=== PATIENT | female | born 1945 | race Two or more races ===

== ENCOUNTER 2018-05-22 05:58 | Inpatient (IN) | payer OTHER ==
[2018-05-18 10:56] LABS: Basophils # (auto) 0 uL; Basophils % (auto) 0.6 % (0.0-2.0); Eosinophils # (auto) 0.1 uL; Eosinophils % (auto) 3.6 % (0.0-7.0); Hemoglobin 14.1 g/dL (12.2-16.2); Lymphocytes # (auto) 0.7 uL; Lymphocytes % (auto) 21.1 % (10.0-50.0); Mean Corpuscular Hemoglobin 33.1 pg (28.0-32.0); Mean Corpuscular Hgb Conc. 33.7 g/dL (32.0-36.0); Mean Corpuscular Volume 98.2 fL (80.0-100.0); Monocytes # (auto) 0.3 uL; Monocytes % (auto) 8.4 % (0.0-12.0); Neutrophils # (auto) 2.2 uL; Neutrophils % (auto) 66.3 % (37.0-80.0); Nucleated Red Blood Cells % 0.1 %; Platelet Count (auto) 286 10^3/uL (140-450); Red Blood Cells 4.27 10^6/uL (4.0-5.20); Red Cell Distribution Width 14.5 % (11.8-14.3); White Blood Cell 3.3 10^3/uL (4.4-10.8)
[2018-05-18 11:01] LABS: Urine Amorphous Crystal FEW /hpf (None Seen); Urine Bacteria FEW /hpf (None Seen); Urine Blood Negative /uL (Negative); Urine Specific Gravity 1.012 (1.001-1.035); Urine WBC 1 /hpf (0 - 5)
[2018-05-18 11:10] LABS: INR 0.93 (0.9-1.15); Partial Thromboplastin Time 27.1 sec (23.78-33.04)
[2018-05-18 12:52] LABS: Albumin 3.9 g/dL (3.4-5.0); BUN/Creatinine Ratio 20.5; Calcium 9.1 mg/dL (8.5-10.1); Potassium 4.5 mmol/L (3.5-5.1)
[2018-05-18 12:55] LABS: Bilirubin, Total 0.4 mg/dL (0.2-1.0); Total Protein 8.2 g/dL (6.4-8.2)
[~2018-05-22] VITALS: Ht 154.9 cm; Wt 35.7 kg
[~2018-05-22 05:58] MED LIST: ALEN1TAB32 PO; CEPH250C2 PO; CHOL20007 PO; KRIL1CAP14 PO; LISI-275 PO; LOVA20TA4 PO; METF-370 PO; PIOG1TAB36 OR
[2018-05-22] MEDS ORDERED: ceFAZolin 1GM/50ML 100 ML IV ONE (06:38)
[2018-05-22] MEDS ORDERED: SUCCINYLCHOLINE CHLORIDE 20 MG/ML 10ML VIAL IV ONE (07:01)
[2018-05-22] MEDS ORDERED: LIDOCAINE 1% HCL (LOCAL ANESTH.) INJ 20ML MDV ONE (07:01)
[2018-05-22] MEDS ORDERED: MORPHINE SULF(PF) 0.5MG/ML 10ML VIAL ONE (07:23)
[2018-05-22] MEDS ORDERED: TETRACAINE 1% INJ 2 ML VIAL IJ ONE (07:23)
[2018-05-22] MEDS ORDERED: SODIUM CHLORIDE LOCK 10 ML ONE (07:24)
[2018-05-22] MEDS ORDERED: PROPOFOL 10 MG/ML 20 ML IV ONE (07:24)
[2018-05-22] MEDS ORDERED: ONDANSETRON HCL 4 MG/2 ML VIAL ONE (07:24)
[2018-05-22] MEDS ORDERED: MIDAZOLAM HCL 1MG/1ML-2 ML VIAL ONE (07:24)
[2018-05-22] MEDS ORDERED: fentaNYL CITRATE 100 MCG/2 ML VL ONE (07:24)
[2018-05-22] MEDS ORDERED: METOCLOPRAMIDE HCL 5MG/ml INJ 2ml VIAL IV ONE (09:00)
[2018-05-22] MEDS ORDERED: KETOROLAC TROMETH 30 MG/ML 1ML VIAL IV ONE (09:00)
[2018-05-22] MEDS ORDERED: ACCU-CHEK COMFORT CURVE STRIP VI ONE (09:00)
[2018-05-22] MEDS ORDERED: fentaNYL CITRATE 100 MCG/2 ML VL IV ONE (09:00)
[2018-05-22] MEDS: LACTATED RINGER'S 1,000 ML IV SCH (11:19)
[2018-05-22] MEDS ORDERED: LIDOCAINE W/ EPINEPHRINE 2% INJ 20ML VIAL ONE (11:21)
[2018-05-22] MEDS ORDERED: BUPIVACAINE HCL 50 ML ONE (11:21)
[2018-05-22] MEDS ORDERED: ceFAZolin 1GM/50ML 50 ML IV SCH (11:30)
[2018-05-22] MEDS ORDERED: TEMAZEPAM 15 MG CAP PO PRN (11:30)
[2018-05-22] MEDS ORDERED: ENOXAPARIN SOD 40 MG/0.4 ML SYRINGE SC ONE (11:45)
[2018-05-22] MEDS ORDERED: DOCUSATE SOD 100 MG CAP PO ONE (11:45)
[2018-05-22] MEDS: ceFAZolin 1GM/50ML 50 ML IV SCH ×2 (13:19→19:32)
[2018-05-22] MEDS ORDERED: DEXTROSE (50%) 50ML SYRG IV PRN (13:45)
[2018-05-22 14:06] VITALS: BP 129/84
[2018-05-22 14:23] VITALS: BP 129/84
[2018-05-22] MEDS: SODIUM CHLOR 0.9% PF (SALINE LOCK) 10ML VIAL/SYR IV SCH ×2 (14:25→22:01)
[2018-05-22] MEDS: ACETAMINOPHEN 325 MG TAB PO PRN (14:31)
[2018-05-22 16:17] VITALS: BP 103/63
[2018-05-22] MEDS: HYDROmorphone HCL 2 MG/ML VL IV PRN ×2 (16:45→23:45)
[2018-05-22] MEDS: ACCU-CHEK COMFORT CURVE STRIP VI SCH ×2 (17:31→22:10)
[2018-05-22] MEDS: metFORMIN HYDROCHLORIDE 500 MG TAB PO SCH (17:52)
[2018-05-22] MEDS: InsuLIN REG 1unit/0.01ml Soln (100units/ml) SC SCH ×2 (17:53→22:27)
[2018-05-22 20:00] VITALS: BP 95/70
[2018-05-22 21:44] VITALS: BP 95/70
[2018-05-22] MEDS ORDERED: DOCUSATE SOD 100 MG CAP PO SCH (22:00)
[2018-05-22] MEDS: DOCUSATE SOD 100 MG CAP PO SCH (22:00)
[2018-05-22] MEDS: PRAVASTATIN SODIUM 20 MG TAB PO SCH (22:00)
[2018-05-22] MEDS: oxyCODONE ER 10 MG TAB PO SCH (22:01)
[2018-05-23] MEDS: ceFAZolin 1GM/50ML 50 ML IV SCH (01:15)
[2018-05-23 04:41] VITALS: BP 100/65
[2018-05-23] MEDS: HYDROmorphone HCL 2 MG/ML VL IV PRN ×5 (04:57→20:53)
[2018-05-23] MEDS: SODIUM CHLOR 0.9% PF (SALINE LOCK) 10ML VIAL/SYR IV SCH ×3 (05:35→22:01)
[2018-05-23] MEDS: ACCU-CHEK COMFORT CURVE STRIP VI SCH ×4 (05:43→22:03)
[2018-05-23] MEDS: InsuLIN REG 1unit/0.01ml Soln (100units/ml) SC SCH ×4 (06:24→22:20)
[2018-05-23] MEDS: metFORMIN HYDROCHLORIDE 500 MG TAB PO SCH ×2 (06:24→18:37)
[2018-05-23] MEDS: LACTATED RINGER'S 1,000 ML IV SCH (06:25)
[2018-05-23 06:27] LABS: Basophils # (auto) 0 uL; Basophils % (auto) 0.2 % (0.0-2.0); Eosinophils # (auto) 0 uL; Eosinophils % (auto) 0.3 % (0.0-7.0); Hematocrit 28.9 % (36.0-46.0); Hemoglobin 9.9 g/dL (12.2-16.2); Lymphocytes # (auto) 0.7 uL; Mean Corpuscular Hemoglobin 33.8 pg (28.0-32.0); Mean Corpuscular Hgb Conc. 34.4 g/dL (32.0-36.0); Mean Corpuscular Volume 98.1 fL (80.0-100.0); Monocytes # (auto) 1.3 uL; Neutrophils # (auto) 6.4 uL; Neutrophils % (auto) 76.5 % (37.0-80.0); Platelet Count (auto) 252 10^3/uL (140-450); Red Blood Cells 2.94 10^6/uL (4.0-5.20); Red Cell Distribution Width 14.3 % (11.8-14.3); White Blood Cell 8.4 10^3/uL (4.4-10.8)
[2018-05-23 06:56] LABS: BUN/Creatinine Ratio 25.4; Potassium 4.1 mmol/L (3.5-5.1)
[2018-05-23] MEDS: ONDANSETRON HCL 4 MG/2 ML VIAL IV PRN ×4 (07:45→20:53)
[2018-05-23 08:30] VITALS: BP 146/82
[2018-05-23 09:00] VITALS: BP 146/82
[2018-05-23] MEDS: CHOLECALCIFEROL (VITD3) 1,000 UNIT TAB PO SCH (09:59)
[2018-05-23] MEDS: LISINOPRIL 5 MG TAB PO SCH (10:00)
[2018-05-23] MEDS: oxyCODONE ER 10 MG TAB PO SCH ×2 (10:00→22:01)
[2018-05-23] MEDS: ENOXAPARIN SOD 40 MG/0.4 ML SYRINGE SC SCH (10:00)
[2018-05-23] MEDS: OMEGA PO SCH (10:00)
[2018-05-23] MEDS: DOCUSATE SOD 100 MG CAP PO SCH ×2 (10:00→22:01)
[2018-05-23] MEDS: PIOGLITAZONE HYDROCHLORIDE 30 MG TAB PO SCH (10:26)
[2018-05-23 13:00] VITALS: BP 137/79
[2018-05-23] MEDS: HYDROcodone-ACET 10/325MG TAB PO PRN ×2 (13:31→18:38)
[2018-05-23 16:44] VITALS: BP 135/69
[2018-05-23 22:00] VITALS: BP 178/62
[2018-05-23] MEDS: PRAVASTATIN SODIUM 20 MG TAB PO SCH (22:01)
[2018-05-24] MEDS: HYDROmorphone HCL 2 MG/ML VL IV PRN ×5 (00:06→17:50)
[2018-05-24] MEDS: LACTATED RINGER'S 1,000 ML IV SCH (03:19)
[2018-05-24 05:00] VITALS: BP 101/56
[2018-05-24] MEDS: SODIUM CHLOR 0.9% PF (SALINE LOCK) 10ML VIAL/SYR IV SCH ×3 (06:00→22:22)
[2018-05-24] MEDS: ACCU-CHEK COMFORT CURVE STRIP VI SCH ×4 (06:26→22:22)
[2018-05-24] MEDS: metFORMIN HYDROCHLORIDE 500 MG TAB PO SCH ×2 (06:26→17:50)
[2018-05-24] MEDS: InsuLIN REG 1unit/0.01ml Soln (100units/ml) SC SCH ×4 (06:36→22:22)
[2018-05-24 08:00] VITALS: BP 103/56
[2018-05-24 08:54] VITALS: BP 103/56
[2018-05-24] MEDS: CHOLECALCIFEROL (VITD3) 1,000 UNIT TAB PO SCH (09:18)
[2018-05-24] MEDS: OMEGA PO SCH (09:19)
[2018-05-24] MEDS: DOCUSATE SOD 100 MG CAP PO SCH ×2 (09:20→22:22)
[2018-05-24] MEDS: oxyCODONE ER 10 MG TAB PO SCH ×2 (09:20→22:21)
[2018-05-24] MEDS: LISINOPRIL 5 MG TAB PO SCH (09:21)
[2018-05-24] MEDS: ENOXAPARIN SOD 40 MG/0.4 ML SYRINGE SC SCH (09:21)
[2018-05-24] MEDS: PIOGLITAZONE HYDROCHLORIDE 30 MG TAB PO SCH (09:26)
[2018-05-24] MEDS: ONDANSETRON HCL 4 MG/2 ML VIAL IV PRN ×2 (11:47→17:50)
[2018-05-24 12:00] VITALS: BP 121/64
[2018-05-24 12:10] LABS: Basophils # (auto) 0 uL; Basophils % (auto) 0.2 % (0.0-2.0); Eosinophils # (auto) 0 uL; Hematocrit 25.4 % (36.0-46.0); Hemoglobin 8.6 g/dL (12.2-16.2); Lymphocytes # (auto) 0.4 uL; Lymphocytes % (auto) 3.2 % (10.0-50.0); Mean Corpuscular Hemoglobin 33.6 pg (28.0-32.0); Mean Corpuscular Hgb Conc. 33.7 g/dL (32.0-36.0); Mean Corpuscular Volume 99.7 fL (80.0-100.0); Monocytes # (auto) 1.1 uL; Monocytes % (auto) 9.4 % (0.0-12.0); Neutrophils # (auto) 10.1 uL; Neutrophils % (auto) 87.2 % (37.0-80.0); Platelet Count (auto) 208 10^3/uL (140-450); Red Blood Cells 2.54 10^6/uL (4.0-5.20); Red Cell Distribution Width 14.1 % (11.8-14.3); White Blood Cell 11.6 10^3/uL (4.4-10.8)
[2018-05-24 16:59] VITALS: BP 108/60
[2018-05-24 21:50] VITALS: BP 92/55
[2018-05-24] MEDS: PRAVASTATIN SODIUM 20 MG TAB PO SCH (22:22)
[2018-05-25] VITALS (12 sets, daily range): BP systolic 90–114; BP diastolic 52–69
[2018-05-25] MEDS ORDERED: SODIUM CHLORIDE 0.9% 1,000 ML IV ONE (02:15)
[2018-05-25] MEDS ORDERED: VANCOMYCIN PER PHARMACY 0 MG IV SCH (02:15)
[2018-05-25] MEDS: ACETAMINOPHEN 325 MG TAB PO PRN ×2 (02:49→21:09)
[2018-05-25] MEDS ORDERED: VANCOMYCIN 1GM/250ML 250 ML IV ONE (03:00)
[2018-05-25] MEDS ORDERED: SODIUM CHLORIDE 0.9% 1,000 ML IV SCH (03:15)
[2018-05-25 05:43] LABS: Basophils # (auto) 0 uL; Eosinophils # (auto) 0 uL; Hematocrit 19.6 % (36.0-46.0); Lymphocytes # (auto) 0.6 uL; Neutrophils # (auto) 9.8 uL; Nucleated Red Blood Cells % 0.1 %
[2018-05-25 05:44] LABS: Lymphocytes % (auto) 5.4 % (10.0-50.0); Mean Corpuscular Hemoglobin 34.3 pg (28.0-32.0); Mean Corpuscular Hgb Conc. 35.1 g/dL (32.0-36.0); Mean Corpuscular Volume 97.7 fL (80.0-100.0); Monocytes # (auto) 0.9 uL; Monocytes % (auto) 8.2 % (0.0-12.0); Neutrophils % (auto) 86.4 % (37.0-80.0); Platelet Count (auto) 224 10^3/uL (140-450); White Blood Cell 11.3 10^3/uL (4.4-10.8)
[2018-05-25 05:48] LABS: Hemoglobin 6.9 g/dL (12.2-16.2)
[2018-05-25] MEDS ORDERED: PIPERACILLIN-TAZOB 3.375GM 100 ML IV SCH (06:00)
[2018-05-25] MEDS: SODIUM CHLOR 0.9% PF (SALINE LOCK) 10ML VIAL/SYR IV SCH ×3 (06:46→21:10)
[2018-05-25] MEDS: InsuLIN REG 1unit/0.01ml Soln (100units/ml) SC SCH ×4 (06:47→21:46)
[2018-05-25] MEDS: ACCU-CHEK COMFORT CURVE STRIP VI SCH ×4 (06:47→21:10)
[2018-05-25] MEDS: metFORMIN HYDROCHLORIDE 500 MG TAB PO SCH ×2 (06:47→18:00)
[2018-05-25 07:37] LABS: Albumin 2.3 g/dL (3.4-5.0); BUN/Creatinine Ratio 24.7; Calcium 7.4 mg/dL (8.5-10.1); Potassium 3.9 mmol/L (3.5-5.1)
[2018-05-25 07:41] LABS: Bilirubin, Total 0.6 mg/dL (0.2-1.0); Total Protein 5.6 g/dL (6.4-8.2)
[2018-05-25 08:06] LABS: Hematocrit 19.6 % (36.0-46.0)
[2018-05-25 08:17] LABS: Hemoglobin 6.7 g/dL (12.2-16.2)
[2018-05-25] MEDS: OMEGA PO SCH (10:00)
[2018-05-25] MEDS: LISINOPRIL 5 MG TAB PO SCH (10:00)
[2018-05-25] MEDS: DOCUSATE SOD 100 MG CAP PO SCH ×2 (10:00→21:09)
[2018-05-25] MEDS: ENOXAPARIN SOD 40 MG/0.4 ML SYRINGE SC SCH (10:00)
[2018-05-25] MEDS: CHOLECALCIFEROL (VITD3) 1,000 UNIT TAB PO SCH (10:52)
[2018-05-25] MEDS: PIOGLITAZONE HYDROCHLORIDE 30 MG TAB PO SCH (10:52)
[2018-05-25] MEDS: oxyCODONE ER 10 MG TAB PO SCH ×2 (10:53→21:10)
[2018-05-25 11:51] LABS: Urine Bacteria FEW /hpf (None Seen); Urine Blood TRACE /uL (Negative); Urine Hyaline Cast FEW /lpf (0 - 2); Urine Mucus FEW (None Seen); Urine Specific Gravity 1.022 (1.001-1.035); Urine WBC 9 /hpf (0 - 5)
[2018-05-25] MEDS ORDERED: IOHEXOL 300 MG/ML 100ML BOTTLE IJ ONE (12:19)
[2018-05-25] MEDS ORDERED: HYDROmorphone HCL 2 MG/ML VL IV PRN (12:30)
[2018-05-25] MEDS: ALBUMIN 25% 100 ML IV SCH ×4 (13:00→22:43)
[2018-05-25] MEDS: PRAVASTATIN SODIUM 20 MG TAB PO SCH (21:11)
[2018-05-25 23:29] LABS: Hematocrit 22.9 % (36.0-46.0)
[2018-05-26] VITALS (16 sets, daily range): BP systolic 103–139; BP diastolic 68–83
[2018-05-26] MEDS: VANCOMYCIN 1GM/250ML 250 ML IV SCH (03:36)
[2018-05-26] MEDS: ACETAMINOPHEN 325 MG TAB PO PRN (05:12)
[2018-05-26] MEDS: metFORMIN HYDROCHLORIDE 500 MG TAB PO SCH ×2 (05:59→18:00)
[2018-05-26] MEDS: InsuLIN REG 1unit/0.01ml Soln (100units/ml) SC SCH ×4 (06:42→21:37)
[2018-05-26] MEDS: SODIUM CHLOR 0.9% PF (SALINE LOCK) 10ML VIAL/SYR IV SCH ×3 (06:42→21:30)
[2018-05-26] MEDS: ACCU-CHEK COMFORT CURVE STRIP VI SCH ×4 (06:43→21:36)
[2018-05-26 07:00] LABS: Hemoglobin 8.3 g/dL (12.2-16.2)
[2018-05-26 07:04] LABS: Hematocrit 23.7 % (36.0-46.0)
[2018-05-26 07:20] LABS: Potassium 3.2 mmol/L (3.5-5.1)
[2018-05-26 07:32] LABS: BUN/Creatinine Ratio 25.9; Bilirubin, Total 1.2 mg/dL (0.2-1.0); Calcium 8.2 mg/dL (8.5-10.1); Total Protein 6.3 g/dL (6.4-8.2)
[2018-05-26] MEDS ORDERED: LEVOFLOXACIN 750MG 150 ML IV SCH (09:00)
[2018-05-26] MEDS: OMEGA PO SCH (10:00)
[2018-05-26] MEDS: LISINOPRIL 5 MG TAB PO SCH (10:00)
[2018-05-26] MEDS: ENOXAPARIN SOD 40 MG/0.4 ML SYRINGE SC SCH (10:00)
[2018-05-26] MEDS: LEVOFLOXACIN 750MG 150 ML IV SCH (11:01)
[2018-05-26] MEDS: DOCUSATE SOD 100 MG CAP PO SCH ×2 (11:05→21:30)
[2018-05-26] MEDS: CHOLECALCIFEROL (VITD3) 1,000 UNIT TAB PO SCH (11:05)
[2018-05-26] MEDS: oxyCODONE ER 10 MG TAB PO SCH ×2 (11:09→12:09)
[2018-05-26] MEDS: PIOGLITAZONE HYDROCHLORIDE 30 MG TAB PO SCH (11:09)
[2018-05-26] MEDS: HYDROcodone-ACET 10/325MG TAB PO PRN (21:36)
[2018-05-26] MEDS: PRAVASTATIN SODIUM 20 MG TAB PO SCH (22:03)
[2018-05-27] MEDS: VANCOMYCIN 1GM/250ML 250 ML IV SCH (04:08)
[2018-05-27 05:00] VITALS: BP 111/67
[2018-05-27] MEDS ORDERED: ALENDRONATE SODIUM 10 MG TAB PO SCH (06:00)
[2018-05-27 06:06] LABS: Potassium 3.5 mmol/L (3.5-5.1)
[2018-05-27 06:11] LABS: Albumin 2.7 g/dL (3.4-5.0); BUN/Creatinine Ratio 23.5; Calcium 7.8 mg/dL (8.5-10.1)
[2018-05-27 06:15] LABS: Bilirubin, Total 1.6 mg/dL (0.2-1.0); Total Protein 6.1 g/dL (6.4-8.2)
[2018-05-27] MEDS: metFORMIN HYDROCHLORIDE 500 MG TAB PO SCH ×2 (06:23→18:00)
[2018-05-27] MEDS: ACCU-CHEK COMFORT CURVE STRIP VI SCH ×3 (06:24→17:22)
[2018-05-27] MEDS: InsuLIN REG 1unit/0.01ml Soln (100units/ml) SC SCH ×3 (06:25→17:00)
[2018-05-27] MEDS: SODIUM CHLOR 0.9% PF (SALINE LOCK) 10ML VIAL/SYR IV SCH ×2 (06:26→15:33)
[2018-05-27] MEDS: HYDROcodone-ACET 10/325MG TAB PO PRN ×2 (06:59→17:23)
[2018-05-27 07:43] LABS: Hematocrit 29.7 % (36.0-46.0); Hemoglobin 10.2 g/dL (12.2-16.2)
[2018-05-27 09:00] VITALS: BP 120/71
[2018-05-27] MEDS: DOCUSATE SOD 100 MG CAP PO SCH (09:57)
[2018-05-27] MEDS: CHOLECALCIFEROL (VITD3) 1,000 UNIT TAB PO SCH (09:57)
[2018-05-27] MEDS: ENOXAPARIN SOD 40 MG/0.4 ML SYRINGE SC SCH (09:57)
[2018-05-27] MEDS: LISINOPRIL 5 MG TAB PO SCH (10:00)
[2018-05-27] MEDS: OMEGA PO SCH (10:00)
[2018-05-27] MEDS: PIOGLITAZONE HYDROCHLORIDE 30 MG TAB PO SCH (10:05)
[2018-05-27] MEDS: oxyCODONE ER 10 MG TAB PO SCH (10:05)
[2018-05-27] MEDS ORDERED: ENO40SY SC (10:27)
[2018-05-27] MEDS ORDERED: HYDR-4072 PO (10:27)
[2018-05-27] MEDS ORDERED: ACE325T PO (10:27)
[2018-05-27 13:00] VITALS: BP 122/73
[2018-05-27] MEDS: LEVOFLOXACIN 750MG 150 ML IV SCH (13:14)
== END 2018-05-27 19:11 | DRG 470 ==
LOC: SUR 05:58 → WEST WING 05:59
PROVIDERS: ADMIT Orthopaedic Surgery; ATTEND Orthopaedic Surgery
PROC: 0MBP0ZZ Excision of Left Knee Bursa and Ligament, Open Approach (ICD-10-PCS; 2018-05-22)
PROC: 0KNR0ZZ Release Left Upper Leg Muscle, Open Approach (ICD-10-PCS; 2018-05-22)
PROC: 0SRD0J9 Replacement of Left Knee Joint with Synthetic Substitute, Cemented, Open Approach (ICD-10-PCS; principal; 2018-05-22 07:41)
PROC: 30233N1 Transfusion of Nonautologous Red Blood Cells into Peripheral Vein, Percutaneous Approach (ICD-10-PCS; 2018-05-25)
DX: M17.12 Unilateral primary osteoarthritis, left knee (principal); E11.9 Type 2 diabetes mellitus without complications; I10 Essential (primary) hypertension; E78.5 Hyperlipidemia, unspecified; D64.9 Anemia, unspecified; I95.2 Hypotension due to drugs; K59.00 Constipation, unspecified; M65.9 Synovitis and tenosynovitis, unspecified; M21.062 Valgus deformity, not elsewhere classified, left knee; Z87.440 Personal history of urinary (tract) infections; Z90.49 Acquired absence of other specified parts of digestive tract
CPT/HCPCS: 36415; 71045; 73562; 73701; 80048; 80053; 81001; 82962; 83036; 85014; 85018; 85025; 85610; 85730; 86850; 86900; 86901; 86920; 87040; 87086; 97110; 97116; 97163; 97530; J0330; J0690; J1815; J1885; J1956; J2001; J2250; J2405; J2543; J2704; J3490; P9047

== ENCOUNTER 2024-10-08 12:19 | Emergency (ER) | payer OTHER, MEDICAID ==
[~2024-10-08] VITALS: Ht 172.7 cm; Wt 70.0 kg
[~2024-10-08 12:19] MED LIST changes: +ACET-1882 PO; -ALEN1TAB32 PO; +ALEN70TA74 PO; -CEPH250C2 PO; +ENO40SY SC; +HYDR-4072 PO
--- NOTE | 2024-10-08 13:29 | DVH ---
CT ABDOMEN AND PELVIS WITHOUT CONTRAST CLINICAL HISTORY: vomiting abd pain TECHNIQUE: Multiple contiguous axial images of the abdomen and pelvis without intravenous contrast. The images were reformatted degenerate coronal and sagittal reconstructions. All CT scans at this medical facility are performed using dose modulation techniques as appropriate t o a performed exam including the following:Automated exposure control was utilized; adjustment of the MA and/or KV according to patient size; and use of iterative reconstruction technique. Radiation Dose Information: CT Dose: CTDI volume is 12 mGy. Dose-length product is 623 mGy*cm Comparison: None FINDINGS: Evaluation of the abdomen and pelvis is limited without intravenous contrast. The gallbladder is moderately distended with layering hyperdense sludge. There is a 5 mm calcified g allstone in the gallbladder neck. There is no pericholecystic fluid collection. There is no obvious s urrounding fat stranding. The liver, pancreas, kidneys, adrenal glands, and spleen appear within normal limits. There is no gross evidence of abdominal lymphadenopathy. There is no free fluid or free air. There is a small fat containing umbilical hernia. The stomach grossly appears unremarkable. The small and large bowel loops demonstrate normal caliber . There are scattered diverticula in the distal colon without evidence of acute diverticulitis. The abdominal aorta and IVC appear within normal limits. The bladder appears unremarkable for the degree of distention. Pelvic organ appears within normal covarrubias its. There is no gross evidence of a pelvic mass. There is no free fluid collection. Lung bases are clear. There is no acute osseous abnormality. There is levoconvex scoliosis of the lumbar spine with multile anahi degenerative changes. IMPRESSION: 1. Moderately distended gallbladder with layering hyperdense sludge. There is a 5 mm calcified gallst one in the gallbladder neck. There is no pericholecystic fluid collection. There is no obvious surrou nding fat stranding. Clinical correlation for acute cholecystitis is recommended. 2. Distal colon diverticulosis without evidence of acute diverticulitis. HS:Y
--- NOTE | 2024-10-08 13:50 | ED.PDOC ---
GI ASSESSMENT HPI Comments 78-year-old female with a history of diabetes, hypertension, dyslipidemia and recent right knee surgery brought in by EMS from home complaining of mid abdominal pain, nausea and vomiting for the last 2 days, associated with chills, sweats and urinary frequency. Patient also notes low back pain. Patient states she underwent right knee surgery on 09/16/2024. She had a follow-up appointment with her orthopedist at [facility] yesterday. She was prescribed a different pain medication and Zofran ODT, however did not have relief of nausea, vomiting or pain. Patient states she is able to ambulate with a walker, and she was told that the surgical wound appears healing. Chief Complaint: nausea/vomiting Time Seen by MD: 12:24 Primary Care Provider: CATHLEEN Allergies: Coded Allergies: NO KNOWN ALLERGIES (Unverified , 05/18/18) Home Meds Active Scripts Hydrocodone-Acetaminophen (Hydrocodone/Acetaminophen 10-325 mg) 1 Tab Tab, 1 TAB PO Q4HP PRN, #20 TAB Prov:TAYLER ORTEGA MD 05/27/18 Enoxaparin Sodium (Lovenox) 40 Mg/0.4 Ml Ij, 40 MG SC DAILY for 10 Days Prov:TAYLER ORTEGA MD 05/27/18 Acetaminophen (Acetaminophen) 325 Mg Tab, 325 MG PO Q6HP PRN, #30 TAB Prov:TAYLER ORTEGA MD 05/27/18 Reported Medications Alendronate Sodium (Alendronate Sodium) 70 Mg Tab, 1 TAB PO QWEEKLY, #4 TAB 3 Refills 05/18/18 Lovastatin (Lovastatin) 20 Mg Tab, 1 TAB PO HS, #30 TAB 5 Refills 05/18/18 Lisinopril (Lisinopril) 5 Mg Tab, 5 MG PO HS for 30 Days, MG 05/18/18 Pioglitazone Hydrochloride (PIOGLITAZONE HCL) 15 Mg Tab, 15 MG OR DAILY, TAB 05/18/18 Metformin Hydrochloride (Metformin Hcl) 500 Mg Tab, 500 MG PO IBID for 30 Days, MG 05/18/18 Cholecalciferol (VITAMIN D3) 2,000 Unit Tab, 1 TAB PO DAILY, #30 TAB 5 Refills 05/18/18 Krill Oil (Denver-3 500 mg) 1 Cap Cap, 1000 MG PO DAILY, CAP 05/18/18 Mode of Arrival: EMS Past Medical History PAST MEDICAL HISTORY: DM, High Lipids, HTN Surgical History (Other): Bilateral knee surgeries 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 Dry mucous membranes.) Neck: Full Range of Motion, Normal Inspection Respiratory: Lungs Clear, No Accessory Muscle Use, No Respiratory Distress, Normal Breath Sounds Cardiovascular: No Edema, No JVD, Regular Rate/Rhythm Breast Exam: Deferred Gastrointestinal: Soft, Tenderness (Mid abdominal, supraumbilical and right greater than left upper quadrant tenderness to palpation. Nontender to percussion. No rebound or guarding.) Genitalia: Deferred Pelvic: Deferred Rectal: Deferred Extremities: Normal inspection, Normal range of motion, Non-tender, No pedal edema, Other (Right knee anterior midline surgical wound with scabbed lesion appears clean, dry and intact without surrounding erythema, edema or discharge. No tenderness.) Neurologic: Alert (Oriented x4), Normal Affect, Normal Mood, Other (Moves all extremities. No gross focal deficit.) Cerebellar Function: NOT DONE Reflexes: NOT DONE Skin: Dry, Normal Color, Warm Lymphatic: NOT DONE Was a procedure done? Was a procedure done?: No GI differential Dx Differential Diagnosis: Appendicitis, Cholangitis, Cholecystitis, Diverticular disease, Gastritis/PUD, Gastroenteritis, Inflammatory BD, Ischemic Bowel, Pancr eatitis, UTI, Dehydration, Diabetes/ DKA, Electrolyte Imbalance, Food Poisoning, Bacterial, Viral, Hypovolemia, Renal Failure, Stress Ulcer X-Ray, Labs, Meds, VS Vital Signs Date Time Temp Pulse Resp B/P (MAP) Pulse Ox O2 Delivery O2 Flow Rate FiO2 10/08/24 20:20 98.7 89 20 97/65 (76) 97 98.7 10/08/24 15:34 64 18 126/87 10/08/24 15:04 96 20 114/69 10/08/24 15:01 96 20 95 Room Air* 0 21 10/08/24 15:01 98.0 96 20 148/69 (95) 95 98.0 10/08/24 12:41 98.7 100 16 108/71 (83) 96 Lab Test 10/08/24 17:59 10/08/24 13:29 10/08/24 13:27 Range/Units Troponin I High Sensitivity 3 L 3 L </=34 ng/L White Blood Count 7.7 4.4-10.8 10^3/uL Red Blood Count 2.67 L 4.0-5.20 10^6/uL Hemoglobin 8.7 L 12.2-16.2 g/dL Hematocrit 26.5 L 36.0-46.0 % Mean Corpuscular Volume 99.1 80.0-100.0 fL Mean Corpuscular Hemoglobin 32.4 H 28.0-32.0 pg Mean Corpuscular Hemoglobin Concent 32.7 32.0-36.0 g/dL Red Cell Distribution Width 16.0 H 11.8-14.3 % Platelet Count 423 140-450 10^3/uL Mean Platelet Volume 7.4 6.9-10.8 fL Neutrophils (%) (Auto) 88.0 H 37.0-80.0 % Lymphocytes (%) (Auto) 7.0 L 10.0-50.0 % Monocytes (%) (Auto) 4.7 0.0-12.0 % Eosinophils (%) (Auto) 0.0 0.0-7.0 % Basophils (%) (Auto) 0.3 0.0-2.0 % Neutrophils # (Auto) 6.8 1.6-8.6 10 ^3/uL Lymphocytes # (Auto) 0.5 0.4-5.4 10 ^3/uL Monocytes # (Auto) 0.4 0-1.3 10 ^3/uL Eosinophils # (Auto) 0 0-0.8 10 ^3/uL Basophils # (Auto) 0 0-0.2 10 ^3/uL Nucleated Red Blood Cells 0.2 % Sodium Level 143 136-145 mmol/L Potassium Level 4.1 3.5-5.1 mmol/L Chloride Level 108 H 98-107 mmol/L Carbon Dioxide Level 26 20-31 mmol/L Anion Gap 9 5-15 Blood Urea Nitrogen 54 H 9-23 mg/dL Creatinine 0.69 0.550-1.02 mg/dL Glomerular Filtration Rate Calc 88 >90 mL/min BUN/Creatinine Ratio 78.3 H 10.0-20.0 Serum Glucose 192 H 74-106 mg/dL Calcium Level 9.7 8.7-10.4 mg/dL Total Bilirubin 0.5 0.2-1.0 mg/dL Aspartate Amino Transferase (AST) 13 13-40 U/L Alanine Aminotransferase (ALT) 11 7-40 U/L Alkaline Phosphatase 47 46-116 U/L B-Type Natriuretic Peptide 27.47 0-100 pg/mL Total Protein 5.9 5.7-8.2 g/dL Albumin 4.0 3.2-4.8 g/dL Lipase 25 12-53 U/L Lactic Acid Level 1.6 0.4-2.0 mmol/L Current Medications Medications (Trade) Dose Ordered Sig/Lucy Route Start Time Stop Time Status Last Admin Sodium Chloride 1,000 ml @ 1,000 mls/hr Q1H ONCE IV 10/08/24 12:30 10/08/24 13:29 DC 10/08/24 15:03 Ondansetron HCl (Zofran) 4 mg ONCE ONCE IV 10/08/24 12:30 10/08/24 12:31 DC 10/08/24 15:03 Morphine Sulfate 4 mg ONCE ONCE IV 10/08/24 14:00 10/08/24 14:32 DC 10/08/24 15:04 PROCEDURE(s): ABPL - CT AB PEL WO CON-NO ORAL OR IV REASON: vomiting abd pain ORDER NUMBER(s): [id number], ACCESSION NUMBER(s): [id number] CT ABDOMEN AND PELVIS WITHOUT CONTRAST CLINICAL HISTORY: vomiting abd pain TECHNIQUE: Multiple contiguous axial images of the abdomen and pelvis without intravenous contrast. The images were reformatted degenerate coronal and sagittal reconstructions. All CT scans at this medical facility are performed using dose modulation techniques as appropriate to a performed exam including the following:Automated exposure control was utilized; adjustment of the MA and/or KV according to patient size; and use of iterative reconstruction technique. Radiation Dose Information: CT Dose: CTDI volume is 12 mGy. Dose-length product is 623 mGy*cm Comparison: None FINDINGS: Evaluation of the abdomen and pelvis is limited without intravenous contrast. The gallbladder is moderately distended with layering hyperdense sludge. There is a 5 mm calcified gallstone in the gallbladder neck. There is no pericholecystic fluid collection. There is no obvious surrounding fat stranding. The liver, pancreas, kidneys, adrenal glands, and spleen appear within normal limits. There is no gross evidence of abdominal lymphadenopathy. There is no free fluid or free air. There is a small fat containing umbilical hernia. The stomach grossly appears unremarkable. The small and large bowel loops demonstrate normal caliber. There are scattered diverticula in the distal colon without evidence of acute diverticulitis. The abdominal aorta and IVC appear within normal limits. The bladder appears unremarkable for the degree of distention. Pelvic organ appears within normal limits. There is no gross evidence of a pelvic mass. There is no free fluid collection. Lung bases are clear. There is no acute osseous abnormality. There is levoconvex scoliosis of the lumbar spine with multilevel degenerative changes. IMPRESSION: 1. Moderately distended gallbladder with layering hyperdense sludge. There is a 5 mm calcified gallstone in the gallbladder neck. There is no pericholecystic fluid collection. There is no obvious surrounding fat stranding. Clinical correlation for acute cholecystitis is recommended. 2. Distal colon diverticulosis without evidence of acute diverticulitis. HS:Y EDURE(s): GBUS - GALLBLADDER REASON: RUQ pain n/v ORDER NUMBER(s): [id number], ACCESSION NUMBER(s): [id number] INDICATION: RUQ pain n/v TECHNIQUE: Multiple real-time sonographic images of the abdomen were obtained. COMPARISON: None FINDINGS: Heterogeneous parenchyma of the liver may represent steatosis.. The liver measures 14.38 cm. No intrahepatic biliary ductal dilatation is noted. No stones but sludge is noted in the gallbladder the gallbladder appears distended. The gallbladder wall measures 0. 1 7 cm and is unremarkable. No gallstones but sludge and distended gallbladder.. The common duct measures 0.29 cm and is unremarkable. No pericholecystic fluid is noted. Negative ultrasound Jauregui's sign The right kidney measures 10 cm. No hydronephrosis. The left kidney not measuring The spleen not measured The pancreas is normal. The visualized portions of the IVC and aorta are grossly unremarkable. IMPRESSION: 1. Sludge noted in the gallbladder. Gallbladder is distended. A negative ultrasound Jauregui's sign is noted. 2. Liver measures 14.4 cm and appears heterogeneous. HS:Y X-Ray, Labs, Meds, VS Comment 78-year-old female with a history of hypertension, diabetes, dyslipidemia and recent right knee surgery brought in by EMS from home complaining of nausea and vomiting as well as upper abdominal pain, low back pain, and inability to tolerate p.o. fluids or foods. Vitals remarkable for heart rate 100 Exam remarkable for mid abdominal tenderness to palpation. No rebound or guarding. Rhythm strip independently interpreted by me: Sinus rhythm, rate 100, no ectopy. CT abdomen and pelvis IMPRESSION: 1. Moderately distended gallbladder with layering hyperdense sludge. There is a 5 mm calcified gallstone in the gallbladder neck. There is no pericholecystic fluid collection. There is no obvious surrounding fat stranding. Clinical correlation for acute cholecystitis is recommended. 2. Distal colon diverticulosis without evidence of acute diverticulitis. Right upper quadrant ultrasound: IMPRESSION: 1. Sludge noted in the gallbladder. Gallbladder is distended. A negative ultrasound Jauregui's sign is noted. 2. Liver measures 14.4 cm and appears heterogeneous. CBC remarkable for hemoglobin 8.7, hematocrit 26.5, CMP remarkable for BUN 54, glucose 192, lipase normal, UA pending, lactic normal, troponin negative, BNP normal Patient treated with the following in the ED: 1 L 0.9 normal saline IV bolus, morphine 4 mg IV, Zofran 4 mg IV Re-evaluation, patient states her pain has improved, vitals were stable. Plan is to transfer the patient to [facility] for IV hydration and emesis control. Case discussed with Dr. Saravia at [facility], who will arrange for the patient to be transferred to [facility]. Authorization [id number] I was advised the patient did not want to be admitted and was requesting to sign out against medical advice. I briefly advised the patient regarding the diagnosis and reason for transfer/hospital admission, as well as the risks of leaving prior to completion of treatment including persistent or worsening symptoms, permanent disability or . Patient expressed understanding and stated she would prefer to be at home in her own bed. She was alert, oriented x4 and capable of making informed decisions at the time she signed out against medical advice. Time of 1ST Reevaluation: 18:30 Reevaluation 1ST: Improved Patient Education/Counseling: Diagnosis, Treatment Family Education/Counseling: No Family Present Departure 1 Departure Time of Disposition: 17:38 Impression: Primary Impression: Abdominal pain Qualified Codes: R10.9 - Unspecified abdominal pain Additional Impressions: Nausea and vomiting Qualified Codes: R11.2 - Nausea with vomiting, unspecified Dehydration Biliary colic Disposition: LEFT AGAINST MEDICAL ADVICE Condition: Fair Critical Care Note Critical Care Time?: No Stability Stability form required: No Heart Score Heart Score: Heart Score Response (Comments) Value History N/A 0 EKG N/A 0 Age N/A 0 Risk Factors N/A 0 Troponin N/A 0 Total 0 GEORGE NICOLE MD Oct 08, 2024 13:50
[2024-10-08 14:02] LABS: Basophils # (auto) 0 10 ^3/uL (0-0.2); Basophils % (auto) 0.3 % (0.0-2.0); Eosinophils # (auto) 0 10 ^3/uL (0-0.8); Hematocrit 26.5 % (36.0-46.0); Hemoglobin 8.7 g/dL (12.2-16.2); Lymphocytes # (auto) 0.5 10 ^3/uL (0.4-5.4); Mean Corpuscular Hemoglobin 32.4 pg (28.0-32.0); Mean Corpuscular Hgb Conc. 32.7 g/dL (32.0-36.0); Mean Corpuscular Volume 99.1 fL (80.0-100.0); Monocytes # (auto) 0.4 10 ^3/uL (0-1.3); Monocytes % (auto) 4.7 % (0.0-12.0); Neutrophils # (auto) 6.8 10 ^3/uL (1.6-8.6); Nucleated Red Blood Cells % 0.2 %; Platelet Count (auto) 423 10^3/uL (140-450); Red Blood Cells 2.67 10^6/uL (4.0-5.20); White Blood Cell 7.7 10^3/uL (4.4-10.8)
[2024-10-08 14:20] LABS: Alanine Aminotransferase 11 U/L (7-40); Alkaline Phosphatase 47 U/L (46-116); Anion Gap 9 (5-15); BUN/Creatinine Ratio 78.3 (10.0-20.0); Calcium 9.7 mg/dL (8.7-10.4); Carbon Dioxide 26 mmol/L (20-31); Lipase 25 U/L (12-53); Potassium 4.1 mmol/L (3.5-5.1); Sodium 143 mmol/L (136-145)
[2024-10-08 14:21] LABS: Bilirubin, Total 0.5 mg/dL (0.2-1.0); Total Protein 5.9 g/dL (5.7-8.2)
[2024-10-08 14:25] LABS: Aspartate Aminotransferase 13 U/L (13-40); Blood Urea Nitrogen 54 mg/dL (9-23); Chloride 108 mmol/L (98-107); Glucose 192 mg/dL (74-106)
[2024-10-08 15:01] VITALS: PULSE 96; RESP 20; O2SAT 95
[2024-10-08] MEDS: SODIUM CHLORIDE 0.9% 1,000 ML IV ONE (15:03)
[2024-10-08] MEDS: ONDANSETRON HCL 4 MG/2 ML VIAL IV ONE (15:03)
[2024-10-08] MEDS: MORPHINE SULFATE 4 MG/ML SYR/VIAL IV ONE (15:04)
--- NOTE | 2024-10-08 17:42 | DVH ---
INDICATION: RUQ pain n/v TECHNIQUE: Multiple real-time sonographic images of the abdomen were obtained. COMPARISON: None FINDINGS: Heterogeneous parenchyma of the liver may represent steatosis.. The liver measures 14.38 c m. No intrahepatic biliary ductal dilatation is noted. No stones but sludge is noted in the gallbladd er the gallbladder appears distended. The gallbladder wall measures 0. 1 7 cm and is unremarkable. No gallstones but sludge and distended gallbladder.. The common duct measures 0.29 cm and is unremarkable. No pericholecystic fluid is no anusha. Negative ultrasound Jauregui's sign The right kidney measures 10 cm. No hydronephrosis. The left kidney not measuring The spleen not measured The pancreas is normal. The visualized portions of the IVC and aorta are grossly unremarkable. IMPRESSION: 1. Sludge noted in the gallbladder. Gallbladder is distended. A negative ultrasound Jauregui's sign i s noted. 2. Liver measures 14.4 cm and appears heterogeneous. HS:Y
[2024-10-08 20:20] VITALS: BP 97/65; PULSE 89; RESP 20; TEMP 98.7; O2SAT 97
[2024-10-08] MEDS ORDERED: SODIUM CHLORIDE 0.9% 1,000 ML IV ONE (20:45)
[2024-10-08] MEDS ORDERED: ONDANSETRON HCL 4 MG/2 ML VIAL IV ONE (20:45)
== END 2024-10-08 21:03 | disposition left against medical advice (07) ==
LOC: EDBD 12:19 → ER 12:19
DX: R10.84 Generalized abdominal pain (principal); R11.2 Nausea with vomiting, unspecified; E86.0 Dehydration; E11.9 Type 2 diabetes mellitus without complications; E78.5 Hyperlipidemia, unspecified; I10 Essential (primary) hypertension; Z98.890 Other specified postprocedural states; Z79.84 Long term (current) use of oral hypoglycemic drugs
CPT/HCPCS: 36415; 74176; 76705; 80053; 83605; 83690; 83880; 84484; 85025; 87040; 96361; 96374; 96375; 99285; J2270; J2405; J7030